=== PATIENT | female | born 1995 | race Caucasian/White ===

== ENCOUNTER → 2024-04-07 17:34 | Outpatient (REF) | payer OTHER, SELFPAY | LOC: RAD 17:34 | PROVIDERS: ATTENDING PHYSICIAN Physician Assistant | DX: M54.50 Low back pain, unspecified (principal); Q05.9 Spina bifida, unspecified | CPT/HCPCS: 72100 ==

== ENCOUNTER → 2025-01-24 09:26 | Outpatient (REF) | payer OTHER, SELFPAY | LOC: HWRAD 09:26 | PROVIDERS: ATTENDING PHYSICIAN Obstetrics & Gynecology Gynecology; FAMILY PHYSICIAN Internal Medicine | DX: E01.0 Iodine-deficiency related diffuse (endemic) goiter (principal) | CPT/HCPCS: 76536 ==